=== PATIENT | female | born 1980 | race Caucasian/White ===

== ENCOUNTER → 2020-04-23 17:39 | Outpatient (CLI) | payer BC, SELFPAY | PROVIDERS: PCP Student in an Organized Health Care Education/Training Program; Referring Provider Nurse Practitioner Family | DX: Z11.59 Encounter for screening for other viral diseases (principal) | CPT/HCPCS: 87635; C9803; U0003 ==

== ENCOUNTER → 2020-07-08 17:32 | Outpatient (CLI) | payer BC, SELFPAY | PROVIDERS: PCP Student in an Organized Health Care Education/Training Program; Referring Provider Internal Medicine Pulmonary Disease; Visit Provider Internal Medicine Pulmonary Disease | DX: R06.00 Dyspnea, unspecified (principal); R05 Cough | CPT/HCPCS: 87635; C9803; U0003 ==

== ENCOUNTER → 2020-07-13 09:38 | Outpatient (CLI) | payer BC, SELFPAY ==
--- NOTE | 2020-07-13 09:44 | RAD_ITS ---
EXAM DESCRIPTION: PA and lateral CHEST CLINICAL HISTORY: 40 years Female, chest tightness, cough x 5 days -- covid negative chest tightness, cough x 5 days -- covid negative COMPARISON: None FINDINGS: The thorax is intact. The heart and mediastinum appear to be within normal limits. The lungs appear to be well areated without evidence of pneumonic consolidation or pleural effusion. RAD/Chest PA and Lateral IMPRESSION: Normal PA and lateral chest Electronically Signed: Florentino Briones, at 10:43 EST Tel , Service support ,
[2020-07-13 10:49] LABS: D-Dimer Quantitative (DVT/PE) 0.51 FEU/ug/m (0.27-0.49)
== END ==
PROVIDERS: PCP Student in an Organized Health Care Education/Training Program; Referring Provider Internal Medicine Pulmonary Disease; Visit Provider Internal Medicine Pulmonary Disease
DX: R07.89 Other chest pain (principal); R06.00 Dyspnea, unspecified; R05 Cough
CPT/HCPCS: 36415; 71046; 85379

== ENCOUNTER → 2020-07-13 12:47 | Outpatient (CLI) | payer BC, SELFPAY ==
--- NOTE | 2020-07-13 12:50 | CT_ITS ---
STUDY: CTA CHEST REASON FOR EXAM: Female, 40 years old. CP, DYSPNEA, ELEV D DIMER, JUST STARTED WORKING OUT RECENTLY RADIATION DOSAGE (If Supplied By Facility): CTDIvol = ( 9.26 ) mGy, DLP = ( 347.17 ) mGycm TECHNIQUE: The examination was performed with the intravenous administration of IV 100mL Isovue-370. Post-processing of the angiographic images was performed, with multiplanar reformation and 3D reconstruction. Individualized dose optimization techniques were used for this CT. COMPARISON: None. FINDINGS: A CT pulmonary angiogram was performed with the dose injection optimized to visualize the pulmonary arteries. The pulmonary parenchyma was carefully evaluated and appears to be normal. The heart is normal. The superior mediastinum including the subcarinal bifurcation, both marysol and the superior mediastinum are normal. The pulmonary arteries were visualized and appear to be normal with no evidence of pulmonary embolism. There is a normal branch pattern of the aortic arch. Bone scanning windows through the thorax show the ribs and thoracic spine to be normal. No extrathoracic masses or lesions are seen. The visualized liver, spleen, and adrenals are normal. CT/CTA Chest W/WO Contrast IMPRESSION: Normal CTA chest examination, without a demonstrated pulmonary embolism. Electronically Signed: Florentino Briones, at 13:57 EST Tel , Service support ,
== END ==
PROVIDERS: PCP Student in an Organized Health Care Education/Training Program; Referring Provider Internal Medicine Pulmonary Disease; Visit Provider Internal Medicine Pulmonary Disease
DX: R07.9 Chest pain, unspecified (principal); R06.00 Dyspnea, unspecified; R79.89 Other specified abnormal findings of blood chemistry
CPT/HCPCS: 71275; Q9967

== ENCOUNTER 2020-08-31 11:52 | Emergency (ER) | payer BC, SELFPAY ==
[2020-08-31 11:57] VITALS: BP 125/85; PULSE 94; RESP 16; TEMP 36.4; O2SAT 100; BMI 27.3
[2020-08-31 12:26] VITALS: O2SAT 98
--- NOTE | 2020-08-31 12:26 | ED.DCSUM_ITS ---
History of Present Illness Chief Complaint: Chest Other Informant: Patient Narrative: The 40-year-old female presenting with left arm pain and radiation to the left jaw. She states this is intermittent. It appears to be with exertion. Was seen previously for this and had CTA and cardiac work-up which was negative. She did an outpatient Holter monitor which showed intermittent tachycardia but no abnormal rhythms. Patient was told if she has any more symptoms she should go to the emergency room. Patient states that she only has 1 medical problem which is hypothyroidism. She states her thyroid levels were checked and were normal. Patient denies cardiac history. She denies history of DVT/PE. Past Medical History - Allergies and Home Meds Allergies/Adverse Reactions: Allergies No Known Allergies Allergy (Verified 08/31/20 11:58) Primary Care Physician: Walt Freed DO [Primary Care Provider] - Prior records reviewed: Yes Past Medical History: - - Hypothyroidism Surgical History: noncontributory Lives: Spouse/ Significant Other Smoking Status: Never smoker Alcohol: None Drugs: None Review of Systems General: Denies: Chills, Fever, Sweats Eyes: Denies: Visual changes - bilaterally, Diplopia ENT: Denies: Rhinorrhea, Sore throat Cardiovascular: Reports: Palpitations, Heart racing Respiratory: Denies: Dyspnea, Cough, Dyspnea on exertion Gastrointestinal: Denies: Abdominal pain, Nausea, Vomiting, Diarrhea, Melena, He matochezia Musculoskeletal: Reports: - - Left shoulder pain with radiation to left jaw.. Denies: Myalgias, Back pain Skin: Denies: Rash, Abscess Neurological: Denies: Headache, Weakness, Parasthesia, Numbness Psych: Denies: Depression, Anxiety Physical Exam Vital Signs/Narrative: Vital Signs Temp Pulse Resp BP Pulse Ox 08/31/20 11:57 97.5 F L 94 16 125/85 H 100 Inital Vital Signs reviewed: Yes General: Well nourished Head: Normocephalic, Atraumatic Eyes: Perrl ENT: Moist mucous membranes, No rhinorrhea Cardiovascular: Regular rate, Regular rhythm Respiratory: No distress, CTA bilaterally Extremities: Nontender, No edema. Negative for: Calf Tenderness Skin: Normal color, No rash. Negative for: Cyanosis, Diaphoresis Neurological: Alert, Oriented x3 Psychological: Normal affect, Normal Mood Diagnostic/Tx/Re-eval Clinical Impression(s) from Imaging Studies Chest X-Ray 08/31/20 12:40 IMPRESSION: Normal x-ray examination of the chest. Electronically Signed: Korey Stapleton, at 13:48 EST , Service support , Laboratory Data 08/31/20 08/31/20 12:17 12:17 WBC 9.0 RBC 4.82 Hgb 13.0 Hct 40.9 MCV 84.9 MCH 27.0 MCHC 31.8 L RDW Std Deviation 40.8 RDW Coeff of Lauren 13.2 Plt Count 249 MPV 11.0 Immature Gran % (Auto) 0.200 Neut % (Auto) 64.4 Lymph % (Auto) 28.1 [place] % (Auto) 6.6 Eos % (Auto) 0.4 Baso % (Auto) 0.3 Absolute Neuts (auto) 5.8 Absolute Lymphs (auto) 2.52 Nucleated RBC % 0 Sodium 137 Potassium 3.5 Chloride 104 Carbon Dioxide 25.0 Anion Gap 8 BUN 9 Creatinine 0.82 Estim Creat Clear Calc 90.46 Est GFR (MDRD) Af Amer 100 Est GFR (MDRD) Non-Af 83 BUN/Creatinine Ratio 11.0 Glucose 95 Calcium 9.2 Troponin I < 0.015 - Rhythm Strip Rhythm Strip: Sinus Rhythm Rate: 79 - EKG Initial EKG Interpretation: No Acute Injury Pattern, Sinus Arrythmia - Medical Decision Making Patient presenting for repeat evaluation of left shoulder pain and left jaw pain. She states she is not having actual chest pain. She is already had this worked up as an outpatient and has a negative echocardiogram. She is scheduled for a stress test next week. She was told to come to the ER for evaluation. Patient recently had CTA of the chest which was negative. Today her cardiac work-up so far is normal. Heart score is 0. I do not believe the patient needs a repeat CTA. Chest x-ray is interpreted by myself and the radiologist shows no acute process. EKG interpreted by myself shows a normal sinus rhythm with slight sinus arrhythmia at 79 bpm without ischemic change. Patient will have delta troponin and if negative patient will be sent home to follow-up outpatient for her stress test next week. Patient will be signed out to incoming ED physician. Impression: 1. Chest pain ED Disposition - Plan for ED Patient: Referrals: Walt Freed DO [Primary Care Provider] -
--- NOTE | 2020-08-31 12:26 | EKG12_ITS ---
Test Reason : CP Blood Pressure : / mmHG Vent. Rate : 079 BPM Atrial Rate : 079 BPM P-R Int : 138 ms QRS Dur : 080 ms QT Int : 398 ms P-R-T Axes : 031 034 026 degrees QTc Int : 456 ms Normal sinus rhythm with sinus arrhythmia Normal ECG Confirmed by LIZBETH GODFREY, DAVI ([id number]), image editor FAUSTINO JOHNSON ([id number]) on 09/02/2020 11:30:29 AM Referred By: Confirmed By:DAVI NIEVES MD
[2020-08-31] MEDS: 0.9% Normal Saline 1,000 ML 1000 ML IV (12:29)
[2020-08-31] MEDS: Aspirin 81 MG TAB.CHEW 324 MG PO (12:29)
--- NOTE | 2020-08-31 12:40 | RAD_ITS ---
STUDY: X-RAY CHEST REASON FOR EXAM: Female, 40 years old. Pt. states she has aching in left arm this a.m., exertional dyspnea, discomfort in neck and jaw TECHNIQUE: Single AP portable view of the chest. COMPARISON: Comparison is made with prior study dated 07/13/2020. FINDINGS: EKG electrodes are seen. The lungs are clear and expanded. There is no demonstrated pleural abnormality. Normal size heart. Normal mediastinum and marysol. Normal visualized pulmonary arteries. Normal visualized aortic arch and descending thoracic aorta. Normal visualized thoracic spine. Normal visualized ribs, clavicles, and shoulders. There is no demonstrated abnormality of the visualized soft tissue structures of the upper abdomen. RAD/Chest 1 View (Portable) IMPRESSION: Normal x-ray examination of the chest. Electronically Signed: Korey Stapleton, at 13:48 EST , Service support ,
[2020-08-31 12:45] LABS: Absolute Lymphocyte Count 2.52 X10^3/uL (0.83-4.51); Absolute Neutrophil Count 5.8 X10^3/uL (2.0-7.7); Basophil# 0.03 X10^3/uL; Basophil% 0.3 % (0-1); Eosinophil# 0.04 X10^3/uL; Eosinophils% 0.4 % (0-5); Hematocrit 40.9 % (37-47); Lymphocyte # 2.52 X10^3/ul (4.0); Lymphocyte % 28.1 % (19-41); Mean Corp Hgb Conc 31.8 g/dL (32-36); Mean Corpuscular Volume 84.9 fL (81-99); Monocyte# 0.59 X10^3/uL; Monocyte% 6.6 % (0-10); NRBC Flagged by Analyzer 0 % (0-5); Neutrophil # 5.78 X10^3/uL (2.7-7.7); Neutrophil % 64.4 % (47-70); Platelet Count 249 K/mm3 (150-450); RBC Distribution Width CV 13.2 % (11.6-14.6); RBC Distribution Width SD 40.8 fl (35.1-43.9); Red Blood Count 4.82 M/mm3 (4.2-5.4)
[2020-08-31 12:58] LABS: Anion Gap 8 (5-15); BUN 9 mg/dL (7-18); Calcium,Total 9.2 mg/dL (8.5-10.1); Chloride 104 mmol/L (98-107); Creatinine, Serum 0.82 mg/dL (0.55-1.02); EST Glomerular Filtration Rate 83 mL/min (>60); Est Glom Filt Rate - Afr Amer 100 mL/min (>60); Estimated Creatinine Clearance 90.46 ml/min; Glucose 95 mg/dL (74-106); Potassium 3.5 mmol/L (3.5-5.1); Sodium Level 137 mmol/L (136-145)
[2020-08-31 14:06] VITALS: BP 121/78; PULSE 78; RESP 14; O2SAT 100
--- NOTE | 2020-08-31 15:20 | EKG12_ITS ---
Test Reason : REPEAT Blood Pressure : / mmHG Vent. Rate : 069 BPM Atrial Rate : 069 BPM P-R Int : 144 ms QRS Dur : 074 ms QT Int : 416 ms P-R-T Axes : 037 033 022 degrees QTc Int : 445 ms Normal sinus rhythm Low Voltage QRS Confirmed by LIZBETH GODFREY, DAVI ([id number]), book or script editor FAUSTINO JOHNSON ([id number]) on 09/02/2020 11:31:57 AM Referred By: Confirmed By:DAVI NIEVES MD
[2020-08-31 16:17] VITALS: BP 127/70; PULSE 81; RESP 16; O2SAT 99
--- NOTE | 2020-08-31 16:21 | ED.DEP ---
ED Disposition - Plan for ED Patient: Disposition: Home or Assisted Living Instructions: ED Chest Pain, Uncertain Cause Referrals: Walt Freed DO [Primary Care Provider] -
== END 2020-08-31 16:22 | disposition home or self-care (01) ==
PROVIDERS: Emergency Provider Student in an Organized Health Care Education/Training Program; PCP Student in an Organized Health Care Education/Training Program
DX: R07.9 Chest pain, unspecified (principal); E03.9 Hypothyroidism, unspecified
CPT/HCPCS: 71045; 80048; 84484; 85025; 93005; 96360; 96361; 99283; J7030; A4216

== ENCOUNTER 2021-10-03 09:17 | Emergency (ER) | payer BC, SELFPAY ==
[2021-10-03 09:18] VITALS: BP 155/94; PULSE 76; RESP 15; TEMP 36.2; O2SAT 98; BMI 31.1
--- NOTE | 2021-10-03 09:43 | EDS_ITS ---
HPI History of Present Illness Chief Complaint: Edema Informant: patient Onset/Context/Timing Onset: Days (5) Context: Gradual Onset Timing: Continuous Quality: Tingling Location: Left forehead Worsened by: Movement Relieved by: Nothing Narrative Narrative: Patient presents with swollen lymph nodes for the past 5 days. Patient noted some swelling of her lymph nodes behind her left ear as well as in front of her left ear. Patient went to urgent care on Sunday, 3 days ago and was not diagnosed with anything. Patient states the swelling has gotten worse. Patient states that today she noted some redness over her forehead. Patient states she has some tingling type pain in this area. Patient states it is worse with certain movements. Patient denies any discharge or drainage. Patient denies any fevers or chills. [facility] Medical History Compartment syndrome Hypothyroid Home Medications levothyroxine 75 mcg PO DAILY 08/31/20 [History Last Taken Unknown] valacyclovir 1,000 mg PO TID #20 tab 10/03/21 [Rx Last Taken Unknown] Allergy/AdvReac Type Severity Reaction Status Date / Time No Known Allergies Allergy Verified 10/03/21 09:20 Surgical History History of Social History Smoking Status: Never smoker ROS ROS ED Constitutional Constitutional ED: Denies chills or fever(s) Eyes Eyes: Denies blurry vision or change in vision ENT ENT ED: Denies rhinorrhea or sore throat Cardiovascular Cardiovascular: Denies chest pain or palpitations Respiratory/Chest Respiratory/Chest: Denies cough or dyspnea Gastrointestinal Gastrointestinal: Denies nausea or vomiting Genitourinary Genitourinary ED: Denies dysuria or hematuria Musculoskeletal Musculoskeletal: Denies back pain or neck pain Integumentary Reports rash; Denies abscess Neurologic Neurologic: Denies headache(s) or weakness Allergic/Immunologic Allergic/Immunologic ED: Denies mouth swelling or urticaria EXAM Physical Exam Const Vital Signs: 10/03/21 09:18 10/03/21 09:22 Temperature 97.1 F L Temperature Source Temporal Pulse Rate 76 Respiratory Rate 15 Respiratory Pattern Normal Blood Pressure 155/94 H Blood Pressure Mean 114 Pulse Ox 98 Oxygen Delivery Method Room Air Positive well nourished and well developed General Appearance ED: well developed HEENT Reports TM's clear and moist mucous membranes HEENT Narrative: There is some mild lymphadenopathy of the preauricular and anterior cervical lymph nodes on the left. Tympanic Membrane ED: Yes TM's clear Eyes PERRL and EOMs intact bilaterally Neck supple and no JVD Neuro oriented x3, CN's II-XII intact bilaterally and no sensory deficits noted Sensorium / Orientation: alert Motor Exam: strength 5/5 throughout Psych mental status grossly normal Skin Skin Narrative: There is an erythematous rash over the left frontal area. There is some mild tenderness. There are some vesicles noted. There is no active discharge or drainage. There are no petechia noted. There is no involvement of mucous membranes. MDM MDM MDM Narrative Medical decision making narrative: Patient was advised that the rash appears to be consistent with shingles. This is most likely why her lymph nodes have been swelling. Patient was given a prescription for Valtrex. Patient was instructed to follow-up with her primary care physician in 3 to 5 days. Patient understood and was agreeable with the plan. All questions were answered. Discharge Plan Triage Chief Complaint: Edema ED Provider: Devang Trinidad Dx/Rx/DC Orders Clinical Impression: Varicella zoster Instructions: ED Shingles (Herpes Zoster) Prescriptions: New valacyclovir 1 gram tablet 1,000 mg PO TID Qty: 20 RF: 0 No Action levothyroxine 75 MCG tablet 75 mcg PO DAILY RF: 0 Primary Care Provider: Walt Freed Referrals: Walt Freed DO [Primary Care Provider] - Disposition Disposition: Home, Self Care
[2021-10-03 10:57] VITALS: RESP 16
== END 2021-10-03 23:59 | disposition home or self-care (01) ==
LOC: ED 09:56
PROVIDERS: Emergency Provider Emergency Medicine; PCP Student in an Organized Health Care Education/Training Program; Visit Provider Emergency Medicine
DX: B01.9 Varicella without complication (principal); E03.9 Hypothyroidism, unspecified; Z79.899 Other long term (current) drug therapy
CPT/HCPCS: 99283

== ENCOUNTER 2022-06-30 11:30 | Outpatient (RCR) | payer BC, SELFPAY ==
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
--- NOTE | 2022-06-30 11:54 | HP.PTDCSUM_ITS ---
It has been my pleasure to treat SHWETHA HERBERT referred by Dr. Rubens Tate MD, with the diagnosis of RIGHT ROTATOR CUFF TEAR AND IMPINGEMENT SYNDROME for a total of 7 visit(s). Discharge Date: Please see the following information for a summary of their discharge status. Subjective: PATIENT REPORTS THAT AT TIMES HER ROM IS BETTER AND SHE CAN ALMOST GET FULL RANGE. SHE ALSO REPORTS SHE IS SLEEPING BETTER BUT CAN'T SLEEP ON RIGHT SIDE DUE TO PAIN. PATIENT REPORTS SHE IS NOT HAVING RIGHT UE NUMBNESS OR TINGLING. ADL'S AND WORK ARE STILL VERY LIMITED. WHEN SHE TRIES TO USE HER RIGHT UE MORE SHE SUFFERS WITH INCREASED PAIN AFTER. DOING HEP BUT PULLING OUT ON BAND IS PAINFULL AND LIMITED. PATIENT REPORTS INCREASED SHLD PAIN TODAY DUE TO BEING SHORT HANDED AT WORK. FOLLOW UP PENDING WITH DR. TATE NEXT SUNDAY. Right shoulder Pain Intensity (Out of 10): 6 % Improvement: 45 Objective/Function: PATIENT WAS SEEN TODAY FOR RE-ASSESSMENT OF PROGRESS TOWARD THE SET PT GOALS AND THE NEED FOR FURTHER PHYSICAL THERAPY VS READINESS FOR DISCHARGE. PATIENT HS MADE SMALL SLOW IMPROVEMENT IN R UE STRENGTH AND ROM BUT IS STILL HAVING SIGNIFICANT PAIN AND DISFUNCTION. SHE IS INDEP WITH A HEP WITH LIMITED PROGRESS. PHYSICIAN RE-ASSESSMENT RECOMMENDED. PATIENT AGREEABLE. UPON EXAM TODAY: ROM deficit: DECREASED RIGHT SHLD ROM ALL PLANES. FLEXION 155 DEG, ABD 135, IR 68 DEG AND ER 62 DEG (90 DEG ABD) WITH ERP ALL PLANES. L UE WFL. Motor deficit: L UE WFL. RIGHT SHLD 3-/5, ELBOW 5/5. Cervical Mvmt Loss: Flex: NIL. Pro: NIL. Ext: MIN. Ret: MIN. RSB: MOD. LSB: MIN. R Rot: MIN. L Rot: MIN. PATIENT C/O INCREASED R SHLD PAIN WITH *R SB. C/O STR ETCHING IN R SHLD L ROTATION. Postural strength: FAIR. Palpation: MILD RIGHT SHLD ANTERIOR TENDERNESS. NO CERVICAL TENDERNESS. Goal 1:: DECREASE C/O R SHLD PAIN Goal Progress: Not Progressing Goal 2:: INCREASE PAINFREE FUNCTION ROM R UE TO EASE ADL'S Goal Progress: Not Progressing Goal 3:: IMPROVE FUNCTIONAL STRENGTH OF R UE TO EASE ADLS AND ALLOW FOR RETURN TO PLOF Goal Progress: Progressing Goal 4:: PATIENT WILL BE INDEP WITH A HEP FOR CONTINUED IMPROVEMENT ONCE FORMAL PHYSICAL THERAPY CONCLUDES. Goal Progress: Progressing Plan: RIGHT SHLD US X6-8. RIGHT UE ROM, STRETCHING AND STRENGTHEING. If there are questions or concerns regarding this patient's physical therapy, please feel free to call me at [phone]. Thank you for the referral of this patient. Sincerely, Farheen Aguirre, PT, Cert MDT Balance/Gait/Functional tests - Balance/Special Test Scores Quick DASH Score: 38.6395
== END 2022-06-30 13:32 | disposition home or self-care (01) ==
LOC: PT 11:30
PROVIDERS: PCP Student in an Organized Health Care Education/Training Program; Referring Provider Orthopaedic Surgery Sports Medicine; Visit Provider Orthopaedic Surgery Sports Medicine
DX: M75.41 Impingement syndrome of right shoulder (principal); M75.101 Unspecified rotator cuff tear or rupture of right shoulder, not specified as traumatic
CPT/HCPCS: 97035; 97110; 97161; 97164

== ENCOUNTER 2022-08-02 17:37 | Outpatient (CLI) | payer BC, SELFPAY ==
--- NOTE | 2022-08-02 17:41 | MRI_ITS ---
EXAM: MR RIGHT UPPER EXTREMITY WITHOUT INTRAVENOUS CONTRAST, SHOULDER CLINICAL INDICATION: pain, rule out RC tear, linmited r.o.m TECHNIQUE: Multiplanar and multisequence MR images of the right shoulder without intravenous contrast. This report was created using [employer] report [employer] technology. COMPARISON: None. FINDINGS: TENDONS: SUPRASPINATUS: Unremarkable. Intact. INFRASPINATUS: Unremarkable. Intact. SUBSCAPULARIS: Unremarkable. Intact. TERES MINOR: Unremarkable. Intact. BICEPS BRACHII, LONG HEAD: Unremarkable. The extra-articular biceps tendon is in the bicipital groove. The intra-articular biceps tendon is normal. LIGAMENTS: GLENOHUMERAL: Unremarkable. Intact. CORACOACROMIAL: Type II acromion with curved undersurface. No subacromial enthesophyte or os acromiale. No coracoacromial ligament thickening. MUSCLES: Unremarkable. No rotator cuff muscle atrophy. FLUID: Unremarkable. No joint effusion. No subacromial-subdeltoid space bursal fluid. CARTILAGE: Unremarkable. Articular cartilage intact. GLENOID LABRUM: Unremarkable. Intact, limited evaluation on non-arthrographic exam. BONES/JOINTS: Mild hypertrophic degenerative changes of the acromioclavicular joint. No fracture. No abnormal bone marrow signal. OTHER SOFT TISSUES: Unremarkable. No rotator interval edema. MRI/Upper Ext Joint Only(Routine) IMPRESSION: No rotator cuff or labral tearing. Mild degenerative changes of the acromioclavicular joint. Electronically Signed: John Jimenez MD at 22:05 EST Reading Location ID and State: [address] [place] [address] Tel , Service support ,
== END 2022-08-02 23:59 | disposition home or self-care (01) ==
LOC: MRI 17:41
PROVIDERS: PCP Student in an Organized Health Care Education/Training Program; Referring Provider Orthopaedic Surgery Sports Medicine; Visit Provider Orthopaedic Surgery Sports Medicine
DX: Z04.89 Encounter for examination and observation for other specified reasons (principal); M24.819 Other specific joint derangements of unspecified shoulder, not elsewhere classified; M75.101 Unspecified rotator cuff tear or rupture of right shoulder, not specified as traumatic
CPT/HCPCS: 73221

== ENCOUNTER 2022-08-30 07:56 | Day surgery (SDC) | payer BC, SELFPAY ==
[2022-08-30] VITALS (7 sets, daily range): BP systolic 105–130; BP diastolic 53–88; PULSE 78–92; RESP 16–18; TEMP 36.2–36.9; O2SAT 85–100; BMI 31.6
[2022-08-30] MEDS: Lactated Ringers 1,000 ML 15 ML IV (08:20)
--- NOTE | 2022-08-30 10:01 | HP.PCM_ITS ---
HPI - General HPI Narrative SHWETHA HERBERT, is a 42 F who presents for right shoulder arthroscopy, SAD and DCE. No changes to h and p. Narcotic counselling. Block done. right shoulder marked. Post op instructions given. Patient asked about gabapentin for post shingles pain, ok to take PRN but warned about sedation combined with narcotic. MR#: [id number] Acct: [id number] Name:? SHWETHA HERBERT LUZ MARIA Rep #: [id number] : 1980 ? ? Provider: Dr. Rubens Tate MD Age/Sex:? 42/F ? ? Location: [facility] [place] Status: Signed Intake Intake Visit Reasons:?RIGHT SHOULDER Allergies No Known Allergies Allergy (Verified 08/04/22 09:24) Medications ibuprofen 200 mg tablet 200 mg PO Q6H PRN 03/24/22 [History Confirmed 08/04/22] cholecalciferol (vitamin D3) 125 mcg (5,000 unit) capsule 125 mcg PO DAILY 08/04/22 [History Confirmed 08/04/22] PFSH Medical History? Compartment syndrome Hypothyroid Impingement syndrome of right shoulder Irritant contact dermatitis due to plant Right rotator cuff tear Surgical History? History of Family History? Mother Diabetes Hypertension Cancer Uterine cancerFather Hypertension Myocardial infarctionGrandfather Cancer Heart diseaseGrandmother CVA (cerebral vascular accident) Heart disease Social History? Smoking Status:? Never smoker HPI RIGHT SHOULDER Details: Parts of this documentation were recorded by a scribe, this documentation accurately reflects the service provided and the decisions made by me, Dr. Rubens Tate MD 08/04/22 0848. SHWETHA HERBERT is a 42 year old F here today for follow-up shoulder MRI results.? She is still having pain anteriorly as well as laterally going down the arm worse with lifting.? She does have to do some physical activities lifting related to her job at the [employer] and [employer].? She seems to have some pain at the top of the arm as well as with reaching across the body. Ortho Exam General General: Yes no acute distress Neurologic: Yes alert and Yes oriented x3 Psychologic: Yes reasonable and appropriate Right Shoulder Skin/Wound: Yes CDI, No ecchymosis, No erythema and No swelling Testing: Positive Hawkin's, Neer's, TTP AC Joint, AROM-Forward Elevation 0-180, PROM-External Rotation at side 0-60, empty can and cross arm; Negative TTP Biceps, Drop Arm, Apprehension Test or Sulcus Sign SHOULDER: painful arc POS Supplemental Info [facility] Imaging Services [address] [place] [address] Upper Ext? Joint Only(Routine) MR#:? [id number] Acct: [id number] Name:? SHWETHA HERBERT LUZ MARIA Rep #: [id number] :?? 1980 F 42 ? From:? ? John Jimenez MD PCP: Dr. Walt Freed, DO ? Status: REG CLI Study: Upper Ext? Joint Only(Routine) ? Date of Exam: 08/02/22 Exam# [id number] ? Ordering Dr:? Rubens Tate MD EXAM:? MR RIGHT UPPER EXTREMITY WITHOUT INTRAVENOUS CONTRAST, SHOULDER CLINICAL INDICATION:? pain, rule out RC tear, linmited r.o.m TECHNIQUE:? Multiplanar and multisequence MR images of the right shoulder without intravenous contrast.? This report was created using [employer] report generation technology. COMPARISON:? None. FINDINGS: TENDONS: SUPRASPINATUS:? Unremarkable.? Intact. INFRASPINATUS:? Unremarkable.? Intact. SUBSCAPULARIS:? Unremarkable.? Intact. TERES MINOR:? Unremarkable.? Intact. BICEPS BRACHII, LONG HEAD:? Unremarkable.? The extra-articular biceps tendon is in the bicipital groove.? The intra-articular biceps tendon is normal. LIGAMENTS: GLENOHUMERAL:? Unremarkable.? Intact. CORACOACROMIAL:? Type II acromion with curved undersurface. No subacromial enthesophyte or os acromiale. No coracoacromial ligament thickening. MUSCLES:? Unremarkable.? No rotator cuff muscle atrophy. FLUID:? Unremarkable.? No joint effusion.? No subacromial-subdeltoid space bursal fluid. CARTILAGE:? Unremarkable.? Articular cartilage intact. GLENOID LABRUM:? Unremarkable.? Intact, limited evaluation on non-arthrographic exam. BONES/JOINTS: Mild hypertrophic degenerative changes of the acromioclavicular joint.? No fracture.? No abnormal bone marrow signal. OTHER SOFT TISSUES:? Unremarkable.? No rotator interval edema. MRI/Upper Ext? Joint Only(Routine) IMPRESSION: No rotator cuff or labral tearing. Mild degenerative changes of the acromioclavicular joint. ? Electronically Signed: John Jimenez MD at 22:05 EST Reading Location ID and State: [facility] / [place] Tel , Service support? , ? Coding Level of Care Code Off vis,est,level 4 Diagnoses Impingement syndrome of right shoulder? M75.41 Right shoulder pain? M25.511 Time Spent (min) 30 Assessment and Plan Assessment and Plan (1) Impingement syndrome of right shoulder: ?Status:?Acute ?Plan: 42-year-old female with right shoulder pain despite extensive conservative management.? She has mild AC joint arthrosis on the MRI no obvious rotator cuff tear but this does seem to be internal impingement/tendinitis of the rotator cuff tendons and bursitis.? She has failed extensive conservative management including injection and therapy.? She wishes to go ahead with surgical management in this case I would recommend right shoulder arthroscopy, subacromial decompression, distal clavicle excision.? Discussed the pros and cons risks and benefits of continued conservative management versus surgery.? Small risk of AC joint late instability with distal clavicle excision and the subacromial decompression the undersurface acromion appears relatively flat but this also includes bursectomy which typically does help for laterally based shoulder pain worse with lifting.? We discussed the diagnosis prognosis and aftercare associate with surgery 2 weeks to heal the incision 6 weeks likely before going back to any sort of significant activity. As well as if I did see a rotator cuff tear then I would go ahead and repair that but if there is no repair to be done? then no activity restrictions and trying to discontinue the sling within the first 2 weeks.? The patient understood had no further questions or concerns. ?pros and cons risks and benefits were discussed with the patient including but not limited to infection, pain, stiffness, bleeding, damage to surrounding structures, neurovascular injury, recurrence or retear, failure or wear of hardware or fixation, instability, fracture, deep vein thrombosis and pulmonary embolism, anesthetic risks, patient dissatisfaction, need for further surgery and other risks.? Patient understood and wished to proceed with surgery, and signed the informed consent documentation.? [facility] Medical History (Updated 08/24/22 @ 13:48 by Luciana Bass) Alcohol use Back pain Compartment syndrome History of steroid therapy History of stress test Hx of sinus tachycardia Impingement syndrome of right shoulder Irritant contact dermatitis due to plant Non-smoker Restless legs Right rotator cuff tear Home Medications ibuprofen 200 mg tablet 200 mg PO Q6H PRN Pain 03/24/22 [History Last Taken Unknown] cholecalciferol (vitamin D3) 125 mcg (5,000 unit) capsule 125 mcg PO DAILY 08/04/22 [History Last Taken Unknown] Allergy/AdvReac Type Severity Reaction Status Date / Time No Known Allergies Allergy Verified 08/30/22 08:28 Family History Mother Diabetes Hypertension Cancer Uterine cancer Father Hypertension Myocardial infarction Grandfather Cancer Heart disease Grandmother CVA (cerebral vascular accident) Heart disease Surgical History History of Social History Smoking Status: Never smoker Vital Signs Vital Signs Vital Signs: 08/30/22 08:28 08/30/22 08:28 Temperature 98.5 F Temperature Source Temporal Pulse Rate 78 Respiratory Rate 18 Respiratory Pattern Normal Blood Pressure 130/88 H Blood Pressure Mean 102 Blood Pressure Source Monitor Blood Pressure Position Semi-Fowlers Blood Pressure Location Left Arm Pulse Ox 100 Oxygen Delivery Method Room Air Weight Weight: 178 lb 9.191 oz Body Mass Index (BMI) 31.6
[2022-08-30] MEDS: Epinephrine (1 mg/ml) 1 MG/ML VIAL (10:11)
[2022-08-30] MEDS: Cefazolin 2 GM in 0.9% Normal Saline 100 ML IV (10:11)
--- NOTE | 2022-08-30 11:19 | OP.PCM_ITS ---
Problems Associated Problem List Diagnoses (1) Impingement syndrome of right shoulder: (2) Arthrosis of right acromioclavicular joint: Report of Operation Date of Procedure: 08/30/22 Pre-Operative Diagnosis: Right shoulder impingement syndrome and AC joint arthrosis Post-Operative Diagnosis: Same Surgery/Procedure Performed:: Right shoulder arthroscopy, subacromial decompression, distal clavicle excision Surgeon: Rubens Tate Type of Anesthesia: Block,Regional and General Anesthesiologist: Keyshawn Salazar Estimated Blood Loss (mL): 30 Description of Procedure: Patient brought to the operating room theater. Placed supine on the operating room table. 2 g IV Ancef administered prior to the start of the procedure. General anesthesia induced. Patient transferred right side up lateral decubitus. Beanbag positioner. Axillary roll used. All bony prominences padded. SCDs on the legs. Upper extremity prepped and draped in the usual sterile fashion with chlorhexidine-based prep solution allowing over 3 minutes drying time prior to draping. 10 pounds of inline traction with the arm in 30 degrees of abduction was used. Preoperative timeout performed to confirm the site patient and the surgery. Began by inserting the arthroscope into the intra-articular portion of the shoul eusebia. Using spinal needle inside out localization to create an anterior portal through the rotator interval. Biceps root stable. Appeared to have a sublabial foramen above 3:00 of the labrum. Rest the labrum was normal. No loose body. Axillary pouch normal. Undersurface the rotator cuff tendons normal. Mild grade 1 arthritis changes the glenoid, humeral head appeared normal. Subscapularis was normal. Long head of biceps stable no synovitis or instability. Then proceeded to insert the arthroscope into the subacromial space. There is minor amount of bursitis. I completed a complete bursectomy. Rotator cuff probed no tears. Undersurface mild downsloping but otherwise good space anteriorly completed a subacromial decompression to flat margins for about 2 mm. Identified the distal end of the clavicle. I performed a distal clavicle excision for approximately 3 mm again using the aruna. I confirmed this through visualization from posterior, laterally as well as directly through the anterior portal through the AC joint took arthroscopy pictures throughout and saved in the system. Space thoroughly irrigated. Case terminated arthroscope withdrawn. Subcutaneous tissue portal sites closed with 3-0 Monocryl sutures. Skin cleaned with wet and dry dressing. No local anesthetic patient had a preoperative block. Steri-Strips Adaptic 4 x 4 gauze and abdominal pad dressings and cloth tape in a sling with an abduction pillow placed to the upper extremity. Patient woken up from the general anesthetic transferred off the operating room table and taken to postanesthetic care unit in stable condition. All sponge needle instrument counts were correct. Plan for the patient discharged home when they are comfortable according to day surgery criteria start pendulum exercises hand wrist and elbow exercises 4 times a day and follow-up in the office in 2 days time. Complications none Admit VTE Documentation VTE Present on Admission: No VTE Mechan Device Prophylaxis: SCD's VTE Pharm Prophylaxis ordered?: No Reason prophylaxis not ordered:: Treatment Not Indicated
--- NOTE | 2022-08-30 11:25 | DCINST_ITS ---
Discharge Instructions Diet Discharge Diet: No restrictions Activity Ice area for (Minutes): 10 Lifting Restrictions: pendulums four times a day, hand wrist elbow ROM as tolerated Dressing / Incision Call your doctor if your incision/area has: Continuous Slow Oozing, Sudden Increased Bleeding, Increased Pain/ Swelling, Increased Redness, Foul Smelling Discharge and Swelling at the incision site Remove Dressing in: leave in place till F/U Follow Up Care Please Follow Up With: Rubens Tate MD When: 2 days Test Results: Test results from this visit will be discussed in further detail at your follow- up appointment, if applicable. Discharge Plan Admission Attending Provider: Rubens Tate Primary Care Provider: Walt Freed Instructions Patient Instructions: After Shoulder Arthroscopy Discharge Orders/Prescriptions Prescriptions: New oxycodone-acetaminophen [Endocet] 5-325 mg tablet 1 tab PO Q4H MDD 6 PRN (Reason: pain) 7 Days Qty: 30 0RF No Action ibuprofen 200 mg tablet 200 mg PO Q6H PRN (Reason: Pain) cholecalciferol (vitamin D3) 125 mcg (5,000 unit) capsule 125 mcg PO DAILY Referrals / Follow Up: Walt Freed DO [Primary Care Provider] - Rubens Tate MD [Med Staff - Active Staff] - Disposition Disposition (needs filled in before D/C Order can be placed): Home, Self Care
== END 2022-08-30 14:37 | disposition home or self-care (01) ==
LOC: SDC 08:01 → AC 08:02
PROVIDERS: PCP Student in an Organized Health Care Education/Training Program; Referring Provider Orthopaedic Surgery Sports Medicine; Visit Provider Orthopaedic Surgery Sports Medicine
PROC: (CPT 29805; principal; 2022-08-30 09:15)
DX: M19.011 Primary osteoarthritis, right shoulder (principal); M75.41 Impingement syndrome of right shoulder; Z86.16 Personal history of COVID-19
CPT/HCPCS: 29826; 29824; 01630; J7120; J2405

== ENCOUNTER 2022-10-03 17:30 | Outpatient (RCR) | payer BC, SELFPAY ==
--- NOTE | 2022-09-11 15:44 | HP.PTEVAL ---
Patient's Visit Information SHWETHA HERBERT is a 42 year old F referred to Physical Therapy by Dr. Rubens Tate MD with a diagnosis of R shoulder a-c arthrosis, OA, pain, s/p r shoulder bursectomy and SAD 08/30. Date of Evaluation: 09/11/22 Physical Therapist: Devang Byrd, DPT, OCS, CSCS - Visit Plan Frequency: 2x /Week Duration: 4-6 Weeks Plan: 2x/week for 4-6 weeks for. 1. P-AA-AROM, isometric to gradual progression of painfree strength R shoulder. 2. ice as needed. manual as needed PROM and mobs - Subjective Had surgery on 08/30/22, Had SAD and bursectomy. Got a deep sea injury back in February and had pain ever since. ignored it at first. urgent care did not help and Dr. Roberts gave injection which helped for 6 weeks. had therapy,and MRI was approved. Surgery was 11 days ago. Still has pain but feels more muscular. Anterior shoulder and last couple days was 2/10. Used to be bad 8/10 with movement. Lately has precautions of limiting movment, has started stretching upwards. sleep is not great, is in recliner. Was in sling for a while but can be out of it if not active. Returned to work today and wore it alittle bit. 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 Work place works with her. Basic ADLs are going OK at home, modified putting on shirt. Is R handed . Hobbies : fishing and gardening and outside work with chickens and pigs. Avoiding due to shoulder right now. - Pain R shoulder Pain Intensity (Out of 10): 0 Pain Intensity Range: 0, 2 Comment: tightness. - Objective Posture is forward head and protracted scap. Walks I with arms at side. Scapular and neck ROM full and symmetrical without pain. elbow and wrist and hand AROM WFL and symmetrical with L. Shoulder AROM flexion 110, er 30, IR psis, abduction 80. PROM 130 flexion, 60 er, 60 IR at 90 abduction, 100 abduction. strength NT in shoulder, elbow and wrist 4/5 R. reflexes 2/3 bi and tri. Sensation UE WNL to gross light touch. - Balance/Special Test Scores Quick DASH Score: 59.0900 - Goals Goal 1:: I appropriate HEP to limti fture problems Goal Time Frame: 4-6 Weeks Goal 2:: Put on scrubs without pain or modifiication Goal Time Frame: 4-6 Weeks Goal 3:: Patient feel shoulder back to 95% and pain 1/10 at worst Goal Time Frame: 4-6 Weeks Goal 4:: 160 flexion adn 60 ext rotation and l4 IR without pain R shoulder Goal Time Frame: 4-6 Weeks Goal 5:: Pt return to work without limitations Goal Time Frame: 4-6 Weeks - Rehabilitation Potential Physical Therapy Diagnosis: stiffness and weakness post shoulder surgery Rehabilitation Potential: Good - Anticipated Interventions Patient/Client Instruction: Educate patient on: Condition, Plan of Care For the Purpose of:: To decrease pain, To increase ROM, To improve nutrient delivery to tissue, To improve muscle performance and motor function, To increase tolerance to activity/condition/position, To improve ability of physical actions for home/community/work/leisure, To improve gait and locomotor functions Therapeutic Exercise to Include: Strength training, Flexibilty training, Passive ROM, Active ROM For the Purpose of:: To decrease pain, To increase ROM, To improve muscle performance and motor function, To increase tolerance to activity/condition/position Manual Therapy Techniques to Include: Scar massage, Passive ROM, Soft tissue mobilization For the Purpose of:: To decrease pain, To increase ROM, To improve muscle performance and motor function Cryotherapy (ice pack, ice massage): Yes For the Purpose of:: To decrease swelling/inflammation Thank you for the opportunity to evaluate your patient. For Medicare and Medicare HMO plans, please review the plan of care and approve it. It will need to be FAXED BACK to us at [phone] for Medicare purposes. For Medicare only, by signing this I certify the plan of care. Please let me know if there are questions or concerns regarding this plan of care. Physician Signature: Date:
--- NOTE | 2022-10-13 10:41 | HP.PT.NRP ---
SHWETHA HERBERT was seen in my office for initial evaluation on 09/11/22. The following Plan of Care was established for this patient: Initial Frequency: 2x /Week Initial Duration: 4-6 Weeks Patient/Client Instruction: Educate patient on: Condition, Plan of Care For the Purpose of:: To decrease pain, To increase ROM, To improve nutrient delivery to tissue, To improve muscle performance and motor function, To increase tolerance to activity/condition/position, To improve ability of physical actions for home/community/work/leisure, To improve gait and locomotor functions Therapeutic Exercise to Include: Strength training, Flexibilty training, Passive ROM, Active ROM For the Purpose of:: To decrease pain, To increase ROM, To improve muscle performance and motor function, To increase tolerance to activity/condition/position Manual Therapy Techniques to Include: Scar massage, Passive ROM, Soft tissue mobilization For the Purpose of:: To decrease pain, To increase ROM, To improve muscle performance and motor function Cryotherapy (ice pack, ice massage): Yes For the Purpose of:: To decrease swelling/inflammation This patient was last seen in our office 10/03/22. Pertinent comments regarding their Physical therapy will appear below: Pt seen 7 visits and is 75% better. Plan was to continue 3 weeks of strength but patient has called to cancel after talking wtih Dr. Chew Will discontinue chart at this time. At this point I will be discontinuing this patient from physical therapy. I would be happy to see this patient again in the future if found appropriate by the physician. Thank you! Devang Byrd, DPT, OCS, CSCS Balance/Gait/Functional tests - Balance/Special Test Scores Quick DASH Score: 59.0900
== END 2022-10-03 19:00 | disposition home or self-care (01) ==
LOC: PT 17:30
PROVIDERS: PCP Student in an Organized Health Care Education/Training Program; Referring Provider Orthopaedic Surgery Sports Medicine; Visit Provider Orthopaedic Surgery Sports Medicine
DX: M19.011 Primary osteoarthritis, right shoulder (principal); M75.41 Impingement syndrome of right shoulder
CPT/HCPCS: 97110; 97140; 97161

== ENCOUNTER 2023-04-11 18:20 | Emergency (ER) | payer BC, SELFPAY ==
[2023-04-11 18:20] VITALS: BP 138/11; PULSE 109; RESP 18; TEMP 36.7; O2SAT 100; BMI 29.7
--- NOTE | 2023-04-11 19:39 | ED.VIS.GI ---
HPI HPI - GI History of Present Illness Chief Complaint: Abd Pain Narrative Narrative: 42-year-old female presenting with lower abdominal pain in the midline. States that diarrhea, fevers, chills for couple of days. She is also having nausea. Only abdominal surgery was a . No urinary or vaginal complaints other than she started her menstrual cycle. No black or bloody stools. Her fevers have been controlled with Tylenol ibuprofen. No cough or shortness of breath. No sick contacts at home. PFSH PFSH Medical History Alcohol use Arthrosis of right acromioclavicular joint Back pain Compartment syndrome History of steroid therapy History of stress test Hx of sinus tachycardia Impingement syndrome of right shoulder Irritant contact dermatitis due to plant Non-smoker Restless legs Right rotator cuff tear Home Medications ibuprofen 200 mg tablet 200 mg PO Q6H PRN Pain 03/24/22 [History Last Taken Unknown] cholecalciferol (vitamin D3) 125 mcg (5,000 unit) capsule 125 mcg PO DAILY 08/04/22 [History Last Taken Unknown] ondansetron 4 mg disintegrating tablet 4 mg PO Q8H PRN PRN Nausea #10 tabs 04/11/23 [Rx Last Taken Unknown] Allergy/AdvReac Type Severity Reaction Status Date / Time No Known Allergies Allergy Verified 04/11/23 18:22 Family History Mother Diabetes Hypertension Cancer Uterine cancer Father Hypertension Myocardial infarction Grandfather Cancer Heart disease Grandmother CVA (cerebral vascular accident) Heart disease Surgical History History of Social History Smoking Status: Never smoker ROS ROS ED Constitutional Constitutional ED: Reports chills and fever(s); Denies sweats Eyes Eyes: Denies blurry vision or change in vision ENT ENT ED: Denies ear pain or sore throat Cardiovascular Cardiovascular: Denies chest pain, palpitations or racing heartbeat Respiratory/Chest Respiratory/Chest: Denies cough, dyspnea or sputum Gastrointestinal Gastrointestinal: Reports abdominal pain, diarrhea and nausea; Denies constipation or vomiting Genitourinary Genitourinary ED: Denies dysuria, hematuria or urinary frequency Musculoskeletal Musculoskeletal: Reports myalgias; Denies arthralgias or neck pain Integumentary Denies abscess, Abrasions or rash Neurologic Neurologic: Denies headache(s), paresthesias or weakness Psychiatric Psychiatric: Denies anxiety, depression, suicidal ideation or suicidal thoughts Endocrine Endocrinology: Denies polydipsia or polyuria EXAM Physical Exam Const Vital Signs: 04/11/23 18:20 04/11/23 21:00 Temperature 98.1 F Temperature Source Temporal Pulse Rate 109 H 87 Respiratory Rate 18 16 Blood Pressure 138/11 H 116/69 Blood Pressure Mean 53 84 Pulse Ox 100 97 Oxygen Delivery Method Room Air Room Air Positive well nourished General Appearance ED: NAD HEENT Reports moist mucous membranes normocephalic and atraumatic Eyes PERRL and EOMs intact bilaterally Resp normal respiratory effort Effort and Inspection: Negative for respiratory distress Cardio regular rate and regular rhythm GI Palpation: tender suprapubic Back/Spine no CVA tenderness Neuro CN's II-XII intact bilaterally, moves all extremities and no sensory deficits noted Sensorium / Orientation: alert, oriented to person, oriented to place and oriented to time Psych mental status grossly normal Skin no wounds MDM MDM MDM Narrative Medical decision making narrative: Patient with lower abdominal pain, cramping, fevers and chills. Differential includes COVID-19, influenza, UTI, pyelonephritis, diverticulitis, colitis, appendicitis, dehydration, electrolyte abnormalities, urgency. CBC will be obtained to assess white blood cell count, hemoglobin, platelets. CMP to assess liver function, renal function, electrolytes. Lipase to assess for pancreatitis. Urinalysis to assess for UTI. Patient medicated with Zofran and Toradol. Rapid COVID and influenza were obtained. Blood work unremarkable. Rapid COVID and flu negative. On reevaluation patient states she feels well but she still having cramping. We will give her a prescription for Zofran for home. I gave her return precautions. I do not believe she needs a CT scan since her work-up is normal. Impression: 1. Abdominal pain 2. Gastroenteritis Lab Data Attestation: I reviewed the patient's lab results. Labs: Laboratory Results - last 24 hr 04/11/23 18:25 WBC 7.5 RBC 5.16 Hgb 14.3 Hct 43.9 MCV 85.1 MCH 27.7 MCHC 32.6 RDW Std Deviation 40.8 RDW Coeff of Lauren 13.0 Plt Count 205 MPV 10.0 Immature Gran % (Auto) 0.300 Neut % (Auto) 80.8 H Lymph % (Auto) 11.6 L [place] % (Auto) 6.7 Eos % (Auto) 0.3 Baso % (Auto) 0.3 Absolute Neuts (auto) 6.0 Absolute Lymphs (auto) 0.87 Nucleated RBC % 0 Sodium 137 Potassium 3.3 L Chloride 105 Carbon Dioxide 25.0 Anion Gap 7 BUN 8 Creatinine 0.82 Estim Creat Clear Calc 75.44 Est GFR (MDRD) Af Amer 99 Est GFR (MDRD) Non-Af 82 BUN/Creatinine Ratio 9.8 L Glucose 100 Calcium 8.6 Total Bilirubin 0.40 AST 17 ALT 19 Alkaline Phosphatase 60 Total Protein 7.9 Albumin 3.6 Globulin 4.3 H Albumin/Globulin Ratio 0.8 L Lipase 25 Urine Color Yellow Urine Clarity Sl. Cloudy Urine pH 5.0 Ur Specific [place] 1.020 Urine Protein 15 H Urine Glucose (UA) Normal Urine Ketones 50 H Urine Occult Blood 250 H Urine Nitrite Negative Urine Bilirubin Negative Urine Urobilinogen Normal Ur Leukocyte Esterase Negative Urine Test Negative Discharge Plan Triage Chief Complaint: Abd Pain ED Provider: Ryder Henriquez Dx/Rx/DC Orders Instructions: ED Gastroenteritis, Viral (Adult) Prescriptions: New ondansetron 4 mg tablet,disintegrating 4 mg PO Q8H PRN PRN (Reason: Nausea) Qty: 10 0RF No Action ibuprofen 200 mg tablet 200 mg PO Q6H PRN (Reason: Pain) cholecalciferol (vitamin D3) 125 mcg (5,000 unit) capsule 125 mcg PO DAILY Primary Care Provider: Walt Freed Referrals: Walt Freed DO [Primary Care Provider] - Disposition Disposition: Home, Self Care Discharge Date/Time: 04/11/23 21:50
[2023-04-11 19:40] LABS: Color, Urine Yellow (Yellow); Glucose, Dipstick Normal (Normal); Ketone-Dipstick 50 mg/dl (Negative); Leukocyte Esterase-Dipstick Negative /ul (Negative); Nitrite-Dipstick Negative (Negative); Occult Blood-Urine 250 /ul (Negative); Protein-Dipstick 15 mg/dl (Negative); Urine Bilirubin Dipstick Negative (Negative); Urine Clarity Sl. Cloudy (Clear); Urine Urobilinogen Normal (Normal)
[2023-04-11 19:41] LABS: Internal QC Validated? YES +Cl - CLEAR BKGD; Pregnancy, Urine Negative Negative
[2023-04-11 19:43] LABS: Absolute Lymphocyte Count 0.87 X10^3/uL (0.83-4.51); Basophil# 0.02 X10^3/uL; Basophil% 0.3 % (0-1); Eosinophil# 0.02 X10^3/uL; Eosinophils% 0.3 % (0-5); Hematocrit 43.9 % (37-47); Hemoglobin 14.3 g/dL (12.0-15.0); Lymphocyte # 0.87 X10^3/ul (0.83-4.51); Lymphocyte % 11.6 % (19-41); Mean Corp Hgb Conc 32.6 g/dL (32-36); Mean Corpuscular Hgb 27.7 pg (27.0-32.0); Mean Corpuscular Volume 85.1 fL (81-99); Monocyte% 6.7 % (0-10); NRBC Flagged by Analyzer 0 % (0-5); Neutrophil # 6.04 X10^3/uL (2.7-7.7); Neutrophil % 80.8 % (47-70); Platelet Count 205 K/mm3 (150-450); RBC Distribution Width SD 40.8 fl (35.1-43.9); Red Blood Count 5.16 M/mm3 (4.2-5.4); White Blood Count 7.5 K/mm3 (4.4-11.0)
[2023-04-11] MEDS: Ondansetron 4 MG/2 ML Vial IV (19:44)
[2023-04-11] MEDS: Ketorolac 15 MG/ML Vial IV (19:44)
[2023-04-11 19:45] LABS: ALB/GLOB Ratio 0.8 RATIO (0.9-2.4); AST(SGOT) 17 U/L (15-37); Alanine Aminotransfer ALT/SGPT 19 U/L (13-56); Albumin, Serum 3.6 g/dL (3.2-5.0); Alkaline Phosphatase 60 U/L (45-117); Anion Gap 7 (5-15); BUN 8 mg/dL (7-18); BUN/Creat Ratio 9.8 RATIO (10-20); Calcium,Total 8.6 mg/dL (8.5-10.1); Chloride 105 mmol/L (98-107); Creatinine, Serum 0.82 mg/dL (0.55-1.02); EST Glomerular Filtration Rate 82 mL/min (>60); Est Glom Filt Rate - Afr Amer 99 mL/min (>60); Estimated Creatinine Clearance 75.44 ml/min; Globulin 4.3 g/dL (2.2-4.2); Glucose 100 mg/dL (74-106); Lipase 25 U/L (13-75); Potassium 3.3 mmol/L (3.5-5.1); Protein, Total 7.9 g/dL (6.4-8.2); Sodium Level 137 mmol/L (136-145)
[2023-04-11 21:00] VITALS: BP 116/69; PULSE 87; RESP 16; O2SAT 97
== END 2023-04-11 21:50 | disposition home or self-care (01) ==
PROVIDERS: Emergency Provider Student in an Organized Health Care Education/Training Program; PCP Student in an Organized Health Care Education/Training Program; Visit Provider Student in an Organized Health Care Education/Training Program
DX: K52.9 Noninfective gastroenteritis and colitis, unspecified (principal)
CPT/HCPCS: 80053; 81002; 81025; 83690; 85025; 87428; 96374; 96375; 99282; A4216; J2405